=== PATIENT | female | born 1950 | race Two or more races ===

== ENCOUNTER 2025-06-17 09:35 | Outpatient (CLI) | payer OTHER ==
[2025-06-17 10:48] LABS: URINE APPEARANCE Clear; URINE BILIRRUBIN Negative (NEGATIVE); URINE COLOR Yellow; URINE GLUCOSE Negative (NEGATIVE); URINE KETONE Negative (NEGATIVE); URINE LEUKOCYTE Negative; URINE NITRATE Negative; URINE PROTEIN Negative (NEGATIVE); URINE UROBILINOGEN 0.2 E.U./dl
[2025-06-17 10:49] LABS: URINE BACTERIA 333.6 uL (0.0-1933); URINE EPITHELIAL CELLS 77.0 uL (0.0-38.8); URINE RBC 20.0 uL (0.0-20.8); URINE WBC 3.8 uL (0.0-23.2)
[2025-06-17 10:52] LABS: BASO % 0.5 % (0.1-1.2); EOS # 0.24 (0.04-0.54); EOS % 3.2 % (0.7-7.0); LYMPH # 1.42 (1.18-3.74); LYMPH % 18.8 % (19.3-53.1); MEAN PLATELET VOLUME 9.90 fl (9.4-12.4); MONO # 0.62 (0.24-0.82); MONO % 8.2 % (4.7-12.5); NEUT # 5.23 (1.56-6.13); NEUT % 69.0 % (34.0-71.1); RED CELL DISTRIBUTION WIDTH 14.0 % (11.6-14.4)
[2025-06-17 11:14] LABS: INR 0.97
[2025-06-17 11:49] LABS: ALT/SGPT 31.0 U/L (12-78); AST/SGOT 25.0 U/L (15-37); BILIRUBIN TOTAL 1.07 mg/dL (0.3-1.2); BUN CREA RATIO 18.0 (7.0-25.0); CREATININE SERUM 0.74 mg/dL (0.55-1.02); GFR 77.14; GLOBULINA 4.2 G/DL (2.4-3.5); GLUCOSE FASTING 101.0 mg/dL (65-100); LDH 157.0 U/L (84-246); OSMOLALITY SERUM 283.0 MOSM/KG (275-295)
[2025-06-17 12:14] LABS: URINE CAST 0.43 uL (0.0-1.40)
[2025-06-17 12:15] LABS: URINE BLOOD TRACES
[2025-06-18 10:11] LABS: CA 15-3 34.9 U/mL (0.0-25.0); CA 27.29 47.7 U/mL (0.0-38.6)
== END 2025-06-17 09:40 | disposition home or self-care (01) ==
LOC: LAB 09:35
DX: D68.9 Coagulation defect, unspecified (principal); Z01.812 Encounter for preprocedural laboratory examination; C50.812 Malignant neoplasm of overlapping sites of left female breast; C77.3 Secondary and unspecified malignant neoplasm of axilla and upper limb lymph nodes

== ENCOUNTER 2025-07-09 07:15 | Outpatient (CLI) | payer OTHER | END 2025-07-09 07:18 | disposition home or self-care (01) | LOC: NUCLEAR 07:15 | PROVIDERS: ATTEND Internal Medicine | DX: C77.3 Secondary and unspecified malignant neoplasm of axilla and upper limb lymph nodes (principal); C50.812 Malignant neoplasm of overlapping sites of left female breast | CPT/HCPCS: 78815; A9552 ==